=== PATIENT | female | born 1950 | race Caucasian/White ===

== ENCOUNTER 2025-01-29 06:22 | Inpatient (IN) | payer OTHER, MEDICAID ==
[~2025-01-29] VITALS: Ht 157.5 cm; Wt 76.7 kg
[2025-01-29] VITALS (49 sets, daily range): BP systolic 87–132; BP diastolic 45–64; PULSE 64–75; RESP 16–18; TEMP 36.3–37.1; O2SAT 98–100
[2025-01-29] MEDS ORDERED: LACTATED RINGERS 1,000 ML IV SCH (06:30)
[2025-01-29] MEDS ORDERED: NOREPINEPHRINE 8MG/250ML PMX 250 ML IV ONE (06:30)
[2025-01-29] MEDS: FENTANYL 2500MCG/250ML PMX 250 ML IV ONE (07:00)
[2025-01-29] MEDS ORDERED: MORPHINE SULFATE 4 MG/ML INJ (FOR IV/IM USE) IV ONE (07:00)
[2025-01-29] MEDS: NOREPINEPHRINE 8MG/250ML PMX 250 ML IV PRN (07:08)
[2025-01-29 07:13] LABS: BASOPHILS % 0.6 % (0.0-2.0); EOSINOPHILS % 1.7 % (0.0-5.0); HEMATOCRIT. 43.4 % (36.0-48.0); HEMOGLOBIN. 14.4 g/dL (12.0-16.0); LYMPHOCYTES % 43.7 % (20.0-50.0); MEAN PLATELET VOLUME 9.7 fl (7.4-10.4); MONOCYTES % 7.3 % (2.0-8.0); NEUTROPHILS % 46.7 % (40.0-76.0); PLATELET 248 x1000/uL (130-400); RED BLOOD CELL COUNT 4.83 mill/uL (4.2-5.4); RED CELL DISTRIBUTION WIDTH 13.0 % (11.6-14.6)
[2025-01-29 07:29] LABS: CREATININE 1.0 mg/dL (0.6-1.0); UREA NITROGEN BLOOD 18 mg/dL (9-23)
[2025-01-29 07:31] LABS: ASPARTATE AMINOTRANSFERASE 19 IU/L (<34)
[2025-01-29 07:32] LABS: BILIRUBIN DIRECT 0.1 mg/dL (<=3.0); BILIRUBIN TOTAL 0.5 mg/dL (0.1-1.0); PROTEIN TOTAL 7.2 g/dL (6.0-8.3)
[2025-01-29 07:35] LABS: TROPONIN I HIGH SENSITIVITY 2787 ng/L (3.0-34)
[2025-01-29] MEDS: FENTANYL 2500MCG/250ML PMX 250 ML IV PRN (07:39)
[2025-01-29] MEDS: PIPERACILLIN/TAZO 3.375G/50ML 50 ML IV STA (07:59)
[2025-01-29] MEDS: MIDAZOLAM HCL 100 MG in DEXT 5% WATER 80 ML IV ONE (08:21)
[2025-01-29] MEDS: ASPIRIN 325MG TABLET PO ONE (08:32)
[2025-01-29] MEDS: ENOXAPARIN 60MG/0.6ML SYR SUBCUT ONE (08:34)
[2025-01-29] MEDS ORDERED: MIDAZOLAM HCL 100 MG in DEXT 5% WATER 80 ML IV PRN (08:45)
[2025-01-29] MEDS ORDERED: MIDAZOLAM 100MG/100ML PREMIX IV PRN (08:45)
[2025-01-29 09:40] LABS: TROPONIN I HIGH SENSITIVITY 5203 ng/L (3.0-34)
[2025-01-29 09:58] LABS: BG BASE EXCESS -4.4 mmol/L (-2.0-3.0); BG CARBOXYHEMOGLOBIN 0.9 % (0.5-1.5); BG DEOXYHEMOGLOBIN 0.4 % (0.0-5.0); BG FRACTION INSPIRED OXYGEN 100; BG HCO3 ACT 20.4 mmol/L (21.0-28.0); BG METHEMOGLOBIN 0.1 % (0.5-1.5); BG OXYGEN SATURATION 99.6 % (94.0-98.0); BG OXYHEMOGLOBIN 98.6 % (94.0-98.0); BG PCO2 37.0 mmHg (32.0-45.0); BG PEEP (cmH2O) 5.0 cmH2O; BG PH 7.360 (7.350-7.450); BG PO2 287.5 mmHg (83.0-108.0); BG SAMPLE SITE RIGHT RADIAL; BG TIDAL VOLUME(mL) 450.0 mL; BG TOTAL HEMOGLOBIN 14.2 g/dL (12.0-16.0); BG VENT MODE VENT - AC; BG VENT RATE 18.0 set
[2025-01-29] MEDS ORDERED: IPRATROPIUM/ALBUTEROL 0.5-3(2.5)MG/3ML NEB NEB PRN (11:00)
[2025-01-29] MEDS ORDERED: ONDANSETRON HCL 4MG/2ML INJ IV PRN (11:00)
[2025-01-29] MEDS ORDERED: DEXTROSE 50% WATER 50ML SYRINGE IV PRN (11:00)
[2025-01-29] MEDS ORDERED: DIPHENHYDRAMINE 50MG/ML VIAL IV PRN (11:00)
[2025-01-29 11:56] LABS: INR 1.0
[2025-01-29] MEDS: BLOOD SUGAR DIAGNOSTIC STRIP TEST SCH (12:00)
[2025-01-29] MEDS ORDERED: FENTANYL 2500MCG/250ML PMX 250 ML IV PRN (12:15)
[2025-01-29] MEDS ORDERED: MIDAZOLAM HCL 100 MG in SODIUM CHLORIDE 0.9% 80 ML IV PRN (12:15)
[2025-01-29] MEDS ORDERED: NOREPINEPHRINE 8MG/250ML PMX 250 ML IV PRN (12:15)
[2025-01-29] MEDS: IPRATROPIUM/ALBUTEROL 0.5-3(2.5)MG/3ML NEB HHN SCH (12:33)
[2025-01-29] MEDS: FUROSEMIDE 40MG/4ML VIAL IVP SCH (13:21)
[2025-01-29] MEDS: ASPIRIN 81MG EC TABLET PO SCH (13:21)
[2025-01-29] MEDS: PANTOPRAZOLE SODIUM 40 MG/VIAL IV SCH (13:21)
[2025-01-29] MEDS: SODIUM BICARBONATE 8.4% 50MEQ/50ML SYR IV NR (13:21)
[2025-01-29] MEDS: INSULIN LISPRO 100 UNITS/ML SUBCUT SCH (13:22)
[2025-01-29] MEDS: SODIUM CHLORIDE 0.9% 3ML FLUSH IVF SCH (16:40)
[2025-01-29] MEDS: ENOXAPARIN 80MG/0.8ML SYR SUBCUT SCH (19:41)
[2025-01-29] MEDS: ATORVASTATIN CALCIUM 40MG TABLET NG SCH (21:23)
[2025-01-30] VITALS (52 sets, daily range): BP systolic 87–133; BP diastolic 44–77; PULSE 68–107; RESP 12–26; TEMP 36.8–37.1; O2SAT 96–99
[2025-01-30 06:25] LABS: BASOPHILS % 0.7 % (0.0-2.0); EOSINOPHILS % 1.9 % (0.0-5.0); HEMATOCRIT. 37.7 % (36.0-48.0); HEMOGLOBIN. 13.0 g/dL (12.0-16.0); LYMPHOCYTES % 29.0 % (20.0-50.0); MEAN PLATELET VOLUME 9.9 fl (7.4-10.4); MONOCYTES % 6.2 % (2.0-8.0); NEUTROPHILS % 62.2 % (40.0-76.0); PLATELET 189 x1000/uL (130-400); RED BLOOD CELL COUNT 4.36 mill/uL (4.2-5.4); RED CELL DISTRIBUTION WIDTH 12.8 % (11.6-14.6)
[2025-01-30 06:46] LABS: CREATININE 0.7 mg/dL (0.6-1.0); TRIGLYCERIDE 185 mg/dL (0-150); UREA NITROGEN BLOOD 16 mg/dL (9-23)
[2025-01-30 06:47] LABS: LDL CHOLESTEROL 109 mg/dL (5-100)
[2025-01-30 06:49] LABS: TROPONIN I HIGH SENSITIVITY 19971 ng/L (3.0-34)
[2025-01-30] MEDS: KCL 20MEQ/100ML PREMIX 100 ML IV SCH (08:21)
[2025-01-30 08:46] LABS: BG BASE EXCESS -1.3 mmol/L (-2.0-3.0); BG CARBOXYHEMOGLOBIN 1.2 % (0.5-1.5); BG DEOXYHEMOGLOBIN 2.3 % (0.0-5.0); BG FRACTION INSPIRED OXYGEN 40; BG HCO3 ACT 21.7 mmol/L (21.0-28.0); BG METHEMOGLOBIN 0.1 % (0.5-1.5); BG OXYGEN SATURATION 97.7 % (94.0-98.0); BG OXYHEMOGLOBIN 96.4 % (94.0-98.0); BG PCO2 31.6 mmHg (32.0-45.0); BG PEEP (cmH2O) 5.0 cmH2O; BG PH 7.455 (7.350-7.450); BG PO2 97.7 mmHg (83.0-108.0); BG SAMPLE SITE RIGHT RADIAL; BG TIDAL VOLUME(mL) 450.0 mL; BG TOTAL HEMOGLOBIN 13.6 g/dL (12.0-16.0); BG VENT MODE VENT - AC; BG VENT RATE 18.0 set
[2025-01-30] MEDS ORDERED: ENOXAPARIN 80MG/0.8ML SYR SUBCUT SCH (09:00)
[2025-01-30] MEDS: MIDAZOLAM 100MG/100ML PMX 100 ML IV PRN (09:43)
[2025-01-30] MEDS ORDERED: IODIXANOL 320MG/ML 100 ML BOTTLE IV ONE ×2 (16:31→19:30)
[2025-01-30] MEDS ORDERED: LIDOCAINE HCL 1% 20ML VIAL ONE ×4 (16:31→21:07)
[2025-01-30] MEDS ORDERED: FENTANYL CITRATE/PF 50MCG/ML 2ML VIAL ONE ×3 (17:05→20:47)
[2025-01-30] MEDS ORDERED: MIDAZOLAM HCL 2 MG/2 ML VIAL ONE ×3 (17:05→20:47)
[2025-01-30] MEDS ORDERED: HEPARIN 1000 UNITS/ML 10ML ONE (17:09)
[2025-01-30] MEDS ORDERED: ASPIRIN 325MG TABLET ONE (17:17)
[2025-01-30] MEDS ORDERED: ATROPINE SULFATE 1MG/10ML SYR IV PRN (17:30)
[2025-01-30] MEDS ORDERED: ACETAMINOPHEN 325MG TABLET PO PRN (17:30)
[2025-01-30] MEDS ORDERED: CEFAZOLIN SODIUM 1000MG/VIAL ONE (19:25)
[2025-01-30] MEDS: LACTATED RINGERS 1,000 ML IV SCH (22:34)
[2025-01-30] MEDS: NITROGLYCERIN OINT 1GM/INCH UDPKT TD SCH (22:34)
[2025-01-31] VITALS (75 sets, daily range): BP systolic 43–152; BP diastolic 12–117; PULSE 49–167; RESP 10–44; TEMP 37.1; O2SAT 89–100
[2025-01-31] MEDS: ENOXAPARIN 80MG/0.8ML SYR SUBCUT SCH ×2 (00:22→08:34)
[2025-01-31] MEDS: FENTANYL CITRATE/PF 2,500 MCG in SODIUM CHLORIDE 0.9% 200 ML IV PRN (04:20)
[2025-01-31 06:26] LABS: BASOPHILS % 0.4 % (0.0-2.0); EOSINOPHILS % 2.4 % (0.0-5.0); HEMATOCRIT. 39.4 % (36.0-48.0); HEMOGLOBIN. 13.2 g/dL (12.0-16.0); LYMPHOCYTES % 18.1 % (20.0-50.0); MEAN PLATELET VOLUME 9.6 fl (7.4-10.4); MONOCYTES % 6.9 % (2.0-8.0); NEUTROPHILS % 72.2 % (40.0-76.0); PLATELET 188 x1000/uL (130-400); RED BLOOD CELL COUNT 4.41 mill/uL (4.2-5.4); RED CELL DISTRIBUTION WIDTH 13.1 % (11.6-14.6)
[2025-01-31 06:38] LABS: CREATININE 1.0 mg/dL (0.6-1.0); UREA NITROGEN BLOOD 23.0 mg/dL (9-23)
[2025-01-31 06:45] LABS: TROPONIN I HIGH SENSITIVITY 6389.0 ng/L (3.0-34)
[2025-01-31] MEDS: ASPIRIN 325MG TABLET PO SCH (08:34)
[2025-01-31 09:04] LABS: BG BASE EXCESS -3.1 mmol/L (-2.0-3.0); BG CARBOXYHEMOGLOBIN 0.9 % (0.5-1.5); BG DEOXYHEMOGLOBIN 1.9 % (0.0-5.0); BG FRACTION INSPIRED OXYGEN 40; BG HCO3 ACT 22.8 mmol/L (21.0-28.0); BG METHEMOGLOBIN 0.1 % (0.5-1.5); BG OXYGEN SATURATION 98.1 % (94.0-98.0); BG OXYHEMOGLOBIN 97.1 % (94.0-98.0); BG PCO2 44.2 mmHg (32.0-45.0); BG PEEP (cmH2O) 8.0 cmH2O; BG PH 7.330 (7.350-7.450); BG PO2 113.1 mmHg (83.0-108.0); BG SAMPLE SITE RIGHT RADIAL; BG TIDAL VOLUME(mL) 450.0 mL; BG TOTAL HEMOGLOBIN 12.3 g/dL (12.0-16.0); BG VENT MODE VENT - AC; BG VENT RATE 12.0 set
[2025-01-31] MEDS: NOREPINEPHRINE 8MG/250ML PMX 250 ML IV PRN (12:09)
[2025-01-31] MEDS: PHENYLEPHRINE 50MG/250ML PMX 250 ML IV PRN (13:08)
[2025-01-31] MEDS ORDERED: VASOPRESSIN 20 UNIT in SODIUM CHLORIDE 0.9% 99 ML IV PRN (14:00)
[2025-01-31] MEDS: ALBUMIN HUMAN 25GM/500ML (5%) IV NR (14:08)
[2025-01-31] MEDS ORDERED: AMIODARONE HCL 900 MG in DEXT 5% WATER 482 ML IV SCH (14:45)
[2025-01-31] MEDS ORDERED: DIGOXIN 500MCG/2ML AMP IV ONE (14:45)
[2025-01-31] MEDS: AMIODARONE 150MG/100ML D5W 100 ML IV NR (14:51)
[2025-01-31 14:57] LABS: BG BASE EXCESS -12.4 mmol/L (-2.0-3.0); BG CARBOXYHEMOGLOBIN 0.9 % (0.5-1.5); BG DEOXYHEMOGLOBIN 10.5 % (0.0-5.0); BG FRACTION INSPIRED OXYGEN 100; BG HCO3 ACT 15.1 mmol/L (21.0-28.0); BG METHEMOGLOBIN 0.1 % (0.5-1.5); BG OXYGEN SATURATION 89.4 % (94.0-98.0); BG OXYHEMOGLOBIN 88.5 % (94.0-98.0); BG PCO2 40.3 mmHg (32.0-45.0); BG PEEP (cmH2O) 5.0 cmH2O; BG PH 7.192 (7.350-7.450); BG PO2 64.3 mmHg (83.0-108.0); BG SAMPLE SITE RIGHT RADIAL; BG TIDAL VOLUME(mL) 450.0 mL; BG TOTAL HEMOGLOBIN 14.8 g/dL (12.0-16.0); BG VENT MODE VENT - AC; BG VENT RATE 12.0 set
[2025-01-31] MEDS ORDERED: AMIODARONE 360MG/200ML D5W PREMIX IV ONE (15:30)
[2025-01-31] MEDS ORDERED: SODIUM BICARBONATE 8.4% 50MEQ/50ML SYR IV NR (15:45)
[2025-01-31] MEDS ORDERED: DOPAMINE 400MG/250ML PREMIX 250 ML IV PRN (16:00)
[2025-01-31] MEDS: EPINEPHRINE 10 MG in SODIUM CHLORIDE 0.9% 240 ML IV PRN (16:02)
[2025-01-31] MEDS: SODIUM BICARBONATE 150 MEQ in SODIUM CHLORIDE 0.45% 850 ML IV SCH (16:48)
[2025-01-31] MEDS ORDERED: AMIODARONE 360MG/200ML 200 ML IV SCH (21:30)
== END 2025-01-31 17:26 ==
LOC: EDBD 06:22 → ER 06:22 → EDBEDREQ 07:06 → CVICU 08:17 → EDBEDREQTM 08:20 → EDBEDREQSVC 08:20 → ENRESERV 08:51
PROVIDERS: ADMIT Internal Medicine; ATTEND Internal Medicine
PROC: 5A1945Z Respiratory Ventilation, 24-96 Consecutive Hours (ICD-10-PCS; 2025-01-29)
PROC: 0BH17EZ Insertion of Endotracheal Airway into Trachea, Via Natural or Artificial Opening (ICD-10-PCS; 2025-01-29)
PROC: 4A023N7 Measurement of Cardiac Sampling and Pressure, Left Heart, Percutaneous Approach (ICD-10-PCS; principal; 2025-01-30)
PROC: B211YZZ Fluoroscopy of Multiple Coronary Arteries using Other Contrast (ICD-10-PCS; 2025-01-30)
PROC: B215YZZ Fluoroscopy of Left Heart using Other Contrast (ICD-10-PCS; 2025-01-30)
PROC: 5A12012 Performance of Cardiac Output, Single, Manual (ICD-10-PCS; 2025-01-31)
PROC: 02HV33Z Insertion of Infusion Device into Superior Vena Cava, Percutaneous Approach (ICD-10-PCS; 2025-01-31)
PROC: B548ZZA Ultrasonography of Superior Vena Cava, Guidance (ICD-10-PCS; 2025-01-31)
DX: I21.4 Non-ST elevation (NSTEMI) myocardial infarction (principal); J18.9 Pneumonia, unspecified organism; J96.01 Acute respiratory failure with hypoxia; E87.20 Acidosis, unspecified; I47.20 Ventricular tachycardia, unspecified; G93.1 Anoxic brain damage, not elsewhere classified; I50.9 Heart failure, unspecified; E11.9 Type 2 diabetes mellitus without complications; Z66 Do not resuscitate; I46.9 Cardiac arrest, cause unspecified; I95.9 Hypotension, unspecified; I11.0 Hypertensive heart disease with heart failure; D72.829 Elevated white blood cell count, unspecified; I25.10 Atherosclerotic heart disease of native coronary artery without angina pectoris; I49.01 Ventricular fibrillation; E78.5 Hyperlipidemia, unspecified; K21.9 Gastro-esophageal reflux disease without esophagitis; Z79.82 Long term (current) use of aspirin
CPT/HCPCS: 31500; 31720; 36415; 36600; 71045; 71275; 74174; 76604; 80048; 80061; 80076; 82375; 82805; 82962; 83036; 83735; 83880; 84145; 84484; 85025; 87070; 92950; 93005; 93306; 93458; 94002; 94003; 94070; 94640; 94760; 98960; 99291; A4606; C1769; C1887; C1893; J0282; J0690; J1265; J1644; J1650; J1815; J1938; J2003; J2250; J2371; J2470; J2543; J3010; J3480; J3490; J7050; J7060; J7120; P9041; Q9967